=== PATIENT | female | born 1965 | race Two or more races ===

== ENCOUNTER 2025-01-29 18:05 | Emergency (ER) | payer OTHER ==
[~2025-01-29] VITALS: Ht 160 cm; Wt 78.0 kg
[2025-01-29 18:13] VITALS: TEMP 98
[2025-01-29] MEDS ORDERED: LEVETIRACETAM (250 MG) 250 MG TABLET ONE (18:27)
[2025-01-29] MEDS: LEVETIRACETAM (250 MG) 250 MG TABLET PO ONE (18:32)
[2025-01-29 18:52] LABS: CALCIUM, SERUM 9.0 mg/dL (8.5-10.1); CREATININE 0.6 mg/dL (0.6-1.3); SODIUM SERUM 137 mmol/L (136-145); UREA NITROGEN, BLOOD 19 mg/dL (7-18)
[2025-01-29 18:58] LABS: ALCOHOL, BLOOD < 3 mg/dL (0-10); ASPARTATE AMINOTRANSFERASE 14 U/L (15-37); PLATELET COUNT (AUTO) 308 K/uL (150-450); RED BLOOD CELL COUNT(AUTO) 4.80 MIL/uL (4.0-5.2); RED CELL DISTRIBUTION WIDTH 14.1 % (11.5-15.0); TOTAL PROTEIN, SERUM 7.5 g/dL (6.4-8.2); WHITE BLOOD COUNT (AUTO) 9.0 K/uL (4.3-11.0)
[2025-01-29 20:05] LABS: APPEARANCE,URINE CLEAR (CLEAR); BLOOD, URINE NEGATIVE Ery/uL (NEGATIVE); LEUKOCYTE ESTERASE ,URINE 1+ (NEGATIVE); NITRITE, URINE NEGATIVE (NEGATIVE); UGLUCOSE NEGATIVE (NEGATIVE)
[2025-01-29 20:11] LABS: AMPHETAMINE, URINE NEGATIVE (NEGATIVE); BARBITURATE, URINE NEGATIVE (NEGATIVE); BENZODIAZEPINE, URINE NEGATIVE (NEGATIVE); CANNABINOID, URINE NEGATIVE (NEGATIVE); COCCAINE, URINE NEGATIVE (NEGATIVE); OPIATE, URINE NEGATIVE (NEGATIVE)
[2025-01-29] MEDS: IV NS 0.9% 1,000 ML BAG IV ONE (20:32)
[2025-01-29 20:44] LABS: ADD URINE CULTURE YES
[2025-01-29 21:40] VITALS: BP 104/63; O2SAT 98
== END 2025-01-29 22:10 ==
LOC: ER 18:11
DX: G40.909 Epilepsy, unspecified, not intractable, without status epilepticus (principal); F32.A Depression, unspecified; Z20.822 Contact with and (suspected) exposure to COVID-19
CPT/HCPCS: 99285; 96360; 85025; 80048; 80076; 81001; 36415; 87426; 80143; 80320; 80307; J7030; 87086-TC; G0480